=== PATIENT | male | born 1935 | race Caucasian/White ===

== ENCOUNTER 2018-11-10 14:02 | Emergency (ER) | payer MEDICARE, OTHER ==
[2018-11-10] MEDS ORDERED: Adacel (T-DAP) 0.5 ML SYRINGE ONE (14:24)
[2018-11-10] MEDS ORDERED: Lidocaine 2% PF 5 ML VIAL ONE (15:13)
[2018-11-10] MEDS ORDERED: Bacitracin Zinc 1 Packet ONE (15:28)
--- NOTE | 2018-11-10 20:14 | CT ---
CT OF THE BRAIN WITHOUT CONTRAST: 11/10/18 Comparison is made with the 11/06/15 study. Today's exam is done following a fall. Soft tissue swelling is seen in the superficial soft tissues over the right forehead. The underlying brain appears normal. There is no sign of intracranial bleeding or extra-axial hematoma. The ventricu lar sizes are normal and show no shift. There is no sign of acute stroke, mass or edema. No skull fra ctures were seen. Mucosal thickening is noted in the left maxillary sinus. IMPRESSION: No acute intracranial findings. POS: HOME
--- NOTE | 2018-11-10 20:17 | CT ---
CT OF THE FACIAL BONES: 11/10/[address] of the face was done following trauma. Axial slices were acquired, followed by coronal and sagittal reconstructions. No facial fractures were seen. The orbital rims, zygomatic arches, nasal bones, and maxilla appear in tact. No mandibular fractures were seen. The coronal images initially suggested fracture near the rig ht mandibular necks, but the finding was found to be due to patient motion on the scan. I confirm barbara t there is no pain here on physical exam as well. The paranasal sinuses are clear except for some muc osal thickening in the left maxillary sinus. Soft tissue swelling is seen over the right frontal bone from his recent injury. IMPRESSION: No acute bony findings. POS: HOME
== END 2018-11-10 16:03 | disposition home or self-care (01) ==
LOC: BURERS 14:02
DX: S01.111A Laceration without foreign body of right eyelid and periocular area, initial encounter (principal); S40.021A Contusion of right upper arm, initial encounter; W18.30XA Fall on same level, unspecified, initial encounter
CPT/HCPCS: 12011; 70450; 70486; 90471; 90715; J2001

== ENCOUNTER 2021-10-10 16:00 | Emergency (ER) | payer MEDICARE ==
[2021-10-10 16:34] LABS: #Basophils 0.1 thou/uL (0.0-0.2); #Eosinphils 0.2 thou/uL (0.0-0.7); #Lymphocytes 1.7 thou/uL (1.20-3.40); #Monocytes 0.5 thou/uL (0.11-0.59); #Neutrophils 3.4 thou/uL (1.40-6.50); %Basophils 1.2 % (0.0-1.0); %Eosinophils 3.1 % (0.0-10.0); %Monocytes 8.8 % (0.0-10.0); %Neutrophils 57.9 % (42.0-75.0); Hemoglobin 14.3 g/dL (14.0-18.0); Mean Corpuscular Hemoglobin 29.6 pg (27.0-31.0); Mean Corpuscular Volume 87.1 fL (78.0-98.0); Mean Platelet Volume 8.1 fL (7.4-10.4); Platelet Count 159 thou/uL (130-400); RBC Distribution Width 12.9 % (11.5-14.5); Red Blood Cell (RBC) Count 4.81 mill/uL (4.70-6.10); White Blood Cell (WBC) Count 5.9 thou/uL (4.8-10.8)
[2021-10-10 16:47] LABS: ALT (SGPT) 21 U/L (8-55); AST (SGOT) 20 U/L (5-34); Albumin 3.7 g/dL (3.4-4.8); Alkaline Phosphatase 66 U/L (40-110); Anion Gap 12 mmol/L (10-20); BUN (Urea Nitrogen) 22 mg/dL (8.4-25.7); Bilirubin, Total 0.5 mg/dL (0.2-1.2); Calc. Creatinine Clearance 0 mL/min (70-130); Calcium 9.5 mg/dL (7.8-10.44); Carbon Dioxide 26 mmol/L (23-31); Chloride 110 mmol/L (98-107); Globulin 2.9 g/dL (2.4-3.5); Glucose 96 mg/dL (83-110); Protein, Total 6.6 g/dL (5.8-8.1); Sodium 144 mmol/L (136-145)
[2021-10-10 17:05] LABS: CKMB 1.6 ng/mL (0-6.6)
[2021-10-10] MEDS ORDERED: Aspirin Chewable 81 MG TAB ONE (17:08)
== END 2021-10-10 20:46 | disposition short-term general hospital (02) ==
LOC: BURERS 16:00
DX: R00.1 Bradycardia, unspecified (principal); R53.1 Weakness; G62.9 Polyneuropathy, unspecified
CPT/HCPCS: 71045; 80053; 82553; 83880; 84484; 85025; 93005

== ENCOUNTER 2024-04-22 09:09 | Emergency (ER) | payer MEDICARE ==
[2024-04-22 09:56] LABS: Bilirubin Negative (Negative); Blood, Urine Negative (Negative); Clarity Clear (Clear); Glucose, Urine (Dipstick) Negative (Negative); Ketone, Urine Negative (Negative); Leukocyte Trace (Negative); Nitrite Negative (Negative); Protein, Urine (Dipstick) Negative (Neg-Trace); Urobilinogen 0.2 mg/dL (Less than 2)
[2024-04-22 10:09] LABS: #Basophils 0.1 thou/uL (0.0-0.2); #Eosinphils 0.1 thou/uL (0.0-0.7); #Lymphocytes 1.3 thou/uL (1.20-3.40); #Monocytes 0.6 thou/uL (0.11-0.59); #Neutrophils 5.3 thou/uL (1.40-6.50); %Basophils 0.8 % (0.0-1.0); %Eosinophils 1.1 % (0.0-10.0); %Lymphocytes 17.9 % (21.0-51.0); %Monocytes 7.6 % (0.0-10.0); %Neutrophils 72.5 % (42.0-75.0); Hematocrit 48.5 % (42.0-52.0); Hemoglobin 16.1 g/dL (14.0-18.0); Mean Corpuscular HGB CONC 33.1 g/dL (32.0-36.0); Mean Corpuscular Hemoglobin 28.9 pg (27.0-31.0); Mean Corpuscular Volume 87.5 fl (78.0-98.0); Mean Platelet Volume 6.9 fL (7.4-10.4); Platelet Count 160 10x3/uL (130-400); RBC Distribution Width 14.5 % (11.5-14.5); Red Blood Cell (RBC) Count 5.55 mill/uL (4.70-6.10); White Blood Cell (WBC) Count 7.3 10x3/uL (4.8-10.8)
[2024-04-22 10:17] LABS: Bacteria/HPF None Seen HPF (None Seen); CAUTI Indications for Culture Dysuria,urgency,freq; RBC/HPF 0-3 HPF (0-3); Squamous Epithelial 0-3 HPF (0-3); WBC/HPF 0-3 HPF (0-3)
[2024-04-22 10:18] LABS: Other Microscopic Description C&S ORDERED BY DR.
[2024-04-22 10:19] LABS: Urine Culture Reflex No No
[2024-04-22 10:21] LABS: Anion Gap 13 mmol/L (10-20); BUN (Urea Nitrogen) 19 mg/dL (8.4-25.7); Calc. Creatinine Clearance 0 mL/min (70-130); Calcium 9.2 mg/dL (7.8-10.44); Carbon Dioxide 26 mmol/L (23-31); Chloride 106 mmol/L (98-107); Estimated GFR 52; Glucose 84 mg/dL (83-110); Potassium 4.7 mmol/L (3.5-5.1); Sodium 140 mmol/L (136-145)
== END 2024-04-22 10:52 | disposition home or self-care (01) ==
LOC: BURERS 09:09
DX: R33.9 Retention of urine, unspecified (principal); G62.9 Polyneuropathy, unspecified
CPT/HCPCS: 36415; 51702; 80048; 81001; 85025; 87086; 99283